=== PATIENT | male | born 1965 | race Caucasian/White ===

== ENCOUNTER 2017-04-11 18:58 | Inpatient (IN) | payer OTHER ==
[~2017-04-11] VITALS: Ht 190.5 cm; Wt 148.0 kg
[2017-04-11 19:01] VITALS: Ht 190.5 cm; Wt 148.0 kg
[2017-04-11] MEDS ORDERED: IPRATROPIUM (NEB) 0.5 MG/2.5 ML AMP INH STA (19:37)
[2017-04-11] MEDS ORDERED: METHYLPREDNISOLONE 125 MG INJ IV STA (19:37)
[2017-04-11] MEDS ORDERED: ALBUTEROL 0.5% (NEB) 2.5 MG/0.5 ML AMP INH STA (19:37)
[2017-04-11] MEDS ORDERED: ENALAPRILAT 1.25 MG INJ IV ONE (20:00)
[2017-04-11] MEDS ORDERED: ASPIRIN 81 MG TAB PO ONE (20:00)
[2017-04-11] MEDS ORDERED: FUROSEMIDE 40 MG INJ IV ONE (20:00)
[2017-04-11 20:11] LABS: ABNORMAL IP MESSAGE 1; BASOPHIL # 0.1 10^3/ul (0.0-0.1); BASOPHILS % 1.2 % (0.0-2.0); EOSINOPHILS # 0.2 10^3/ul (0.0-0.5); EOSINOPHILS % 4.4 % (0.0-7.0); HEMATOCRIT 31.3 % (42.0-52.0); LYMPHOCYTES # 1.8 10^3/ul (0.8-2.9); LYMPHOCYTES % 36.1 % (15.0-51.0); MEAN CORPUSCULAR HEMOGLOBIN 34.6 pg (29.0-33.0); MEAN CORPUSCULAR HGB CONC 35.1 g/dl (32.0-37.0); MEAN CORPUSCULAR VOLUME 98.4 fl (82.0-101.0); MEAN PLATELET VOLUME 12.1 fl (7.4-10.4); MONOCYTE # 0.5 10^3/ul (0.3-0.9); NEUTROPHILS % 48.1 % (39.0-77.0); PLATELET COUNT 75 10^3/UL (140-415); POSITIVE DIFF @See below; RED BLOOD COUNT 3.18 10^6/ul (4.70-6.10); RED CELL DISTRIBUTION WIDTH 16.9 % (11.5-14.5)
[2017-04-11] MEDS ORDERED: METF1000 PO (20:21)
[2017-04-11] MEDS ORDERED: NOVMIX SC (20:21)
[2017-04-11] MEDS ORDERED: METO-429 PO (20:23)
[2017-04-11] MEDS ORDERED: LORAZEPAM 2 MG INJ IV ONE ×2 (20:30→22:00)
[2017-04-11 20:36] LABS: ALBUMIN 2.9 g/dl (3.3-4.9); ALBUMIN/GLOBULIN RATIO 0.7; BILIRUBIN,INDIRECT 0.8 mg/dl (0-1.1); BILIRUBIN,TOTAL 0.8 mg/dl (0.2-1.3); CALCIUM 8.7 mg/dl (8.4-10.2); CREATININE 0.97 mg/dl (0.61-1.24); POTASSIUM 4.1 mmol/L (3.5-5.1)
--- NOTE | 2017-04-11 20:42 | RADRPT ---
PROCEDURE: Chest Radiograph. CLINICAL INDICATION: Chest and abdominal pain TECHNIQUE: Single frontal chest radiograph. COMPARISON: None available FINDINGS: The cardiomediastinal silhouette is within normal limits. There is mild bibasilar atelectasis. Ther e is a nonspecific interstitial prominence. No infiltrate or effusion is seen. The bones are inta ct. IMPRESSION: 1. Mild nonspecific interstitial prominence. 2. Bibasilar atelectasis. RPTAT: [facility] .Ever Gross MD, MD Date Time Electronically viewed and signed by .Ever Gross MD, MD on 04/11/2017 20:41 .B/
[2017-04-11 20:48] LABS: TROPONIN-I 0.019 ng/ml (0.00-0.12)
[2017-04-11] MEDS ORDERED: KETOROLAC 15 MG INJ IV STA (21:05)
[2017-04-11 21:21] LABS: AADO2 Arterial 109.9 mmHg (7.0-24.0); Arterial COHb 0.3 % (0.0-3.0); Arterial Fraction of Oxyhgb 97.1 % (93.0-99.0); Arterial HCO3 26.8 mmol/L (22.0-26.0); Arterial MetHb 0.3 % (0.0-1.5); Arterial Total Hemglobin 12.2 g/dl (12.0-18.0); Blood Gas IEPAP 15/5; Blood Gas PS 10; MODE MASK - BIPAP
[2017-04-11 22:38] VITALS: PULSE 92
--- NOTE | 2017-04-11 23:20 | ERA ---
ER Documentation Chief Complaint Date/Time DATE: 04/11/17 TIME: 23:14 Chief Complaint bib ra 909 fr home, ap x14 days +nausea. hx dm. HPI 51-year-old man brought in by EMS from home for shortness of breath, difficulty breathing, abdominal pain, bilateral lower extremity swelling 2 weeks. Patient does have a history of COPD, alcoholism, CHF, hypertension. Patient states he is noncompliant with his medications. Patient denies chest pain, no vomiting or diarrhea, no blood per rectum. ROS All systems reviewed and are negative except as per history of present illness. Medications Home Meds Reported Medications Metoprolol Tartrate* (Lopressor*) 50 Mg Tab, 50 MG PO BID, #60 TAB 04/11/17 Metformin Hcl* (Metformin Hcl*) 1,000 Mg Tablet, 1000 MG PO WITH BREAKFAST DINNE , #60 TAB 04/11/17 Insulin Aspart (Novolog Mix (70/30)) 100 Units/Ml Soln, 100 SC WITH BREAKFAST DINNE, EA 04/11/17 Allergies Allergies: Coded Allergies: No Known Allergy (Unverified , 04/11/17) PMhx/Soc Hypertension, alcoholism, diabetes mellitus, CAD, CHF History of Surgery: No Anesthesia Reaction: No Hx Neurological Disorder: No Hx Respiratory Disorders: No Hx Cardiac Disorders: Yes (HTN ) Hx Psychiatric Problems: Yes (ALCOHOL ABUSE) Hx Miscellaneous Medical Probl: No Hx Alcohol Use: No Hx Substance Use: No Hx Tobacco Use: No Smoking Status: Current every day smoker FmHx Family History: No diabetes Physical Exam Vitals Vital Signs Date Time Temp Pulse Resp B/P Pulse Ox O2 Delivery O2 Flow Rate FiO2 04/11/17 19:53 88 100 40 04/11/17 19:01 98.6 94 18 146/72 94 Physical Exam GENERAL: Well-developed, well-nourished, dyspneic, afebrile HEENT: Moist mucous membranes, pink conjunctiva, no cervical spine tenderness or step-off deformities, no goiter, no jaundice or icterus, extraocular movements intact without pain. No submandibular induration, and no pharyngeal erythema NEURO: Alert and oriented 3, cranial nerves II through XII intact bilaterally, pupils equal round reactive to light, no focal deficits or facial asymmetry, sensation intact distally Strength 5/5 in upper and lower extremities bilaterally CARDIAC: Regular rate and rhythm, no murmurs rubs or gallops LUNGS: Crackles and wheezes bilaterally, no stridor ABDOMEN: Soft nontender, no guarding, no rigidity, no rebound, no psoas sign no obturator sign. Normoactive bowel sounds SKIN: Warm and dry to touch, no abrasions, contusions, or hematomas, no lacerations, no ecchymosis, no target lesions, and without ulcers EXTREMITIES: 3+ pitting edema in the lower extremities bilaterally, calves are bilaterally symmetrical, no Homans sign, no popliteal cord sign. Distal pulses equal and bilateral PSYCH: Normal affect without agitation or irritability Result Diagram: 04/12/17 0735 04/12/17 0735 Results 24 hrs Laboratory Tests Test 04/11/17 19:08 04/11/17 20:00 Bedside Glucose 199mg/dL White Blood Count 5.010^3/ul Red Blood Count 3.1810^6/ul Hemoglobin 11.0g/dl Hematocrit 31.3% Mean Corpuscular Volume 98.4fl Mean Corpuscular Hemoglobin 34.6pg Mean Corpuscular Hemoglobin Concent 35.1g/dl Red Cell Distribution Width 16.9% Platelet Count 7510^3/UL Mean Platelet Volume 12.1fl Neutrophils % 48.1% Lymphocytes % 36.1% Monocytes % 10.0% Eosinophils % 4.4% Basophils % 1.2% Nucleated Red Blood Cells % 0.0/100WBC Neutrophils # (Manual) 2.410^3/ul Lymphocytes # 1.810^3/ul Monocytes # 0.510^3/ul Eosinophils # 0.210^3/ul Basophils # 0.110^3/ul Nucleated Red Blood Cells # 0.010^3/ul Sodium Level 144mmol/L Potassium Level 4.1mmol/L Chloride Level 111mmol/L Carbon Dioxide Level 27mmol/L Anion Gap 10 Blood Urea Nitrogen 14mg/dl Creatinine 0.97mg/dl Glucose Level 193mg/dl Calcium Level 8.7mg/dl Total Bilirubin 0.8mg/dl Direct Bilirubin 0.00mg/dl Indirect Bilirubin 0.8mg/dl Aspartate Amino Transf (AST/SGOT) 121IU/L Alanine Aminotransferase (ALT/SGPT) 49IU/L Alkaline Phosphatase 80IU/L Troponin I 0.019ng/ml B-Type Natriuretic Peptide 58PG/ML Total Protein 7.0g/dl Albumin 2.9g/dl Globulin 4.10g/dl Albumin/Globulin Ratio 0.70 Lipase 294U/L Ethyl Alcohol Level 354.0mg/dl Current Medications Medications (Trade) Dose Ordered Sig/Miroslava Route PRN Reason Start Time Stop Time Status Last Admin Dose Admin Albuterol (Proventil 0.5% (Neb)) 10 mg ONCE STAT INH 04/11/17 19:37 04/11/17 19:41 DC 04/11/17 19:37 Ipratropium Stanley (Atrovent 0.02% (Neb)) 1 mg ONCE STAT INH 04/11/17 19:37 04/11/17 19:41 DC 04/11/17 19:37 Methylprednisolone Sodium Succinate (Solu-Medrol) 125 mg ONCE STAT IV 04/11/17 19:37 04/11/17 19:41 DC 04/11/17 19:58 Aspirin (Aspirin) 324 mg ONCE ONCE PO 04/11/17 20:00 04/11/17 20:01 DC 04/11/17 19:58 Furosemide (Lasix) 80 mg ONCE ONCE IV 04/11/17 20:00 04/11/17 20:01 DC 04/11/17 19:58 Enalaprilat (Vasotec Iv) 1.25 mg ONCE ONCE IV 04/11/17 20:00 04/11/17 20:01 DC 04/11/17 19:58 Lorazepam (Ativan) 0.5 mg ONCE ONCE IV 04/11/17 20:30 04/11/17 20:31 DC 04/11/17 20:57 Procedures/MDM IV line was established patient was placed on digital marketing specialist rhythm strip revealed a sinus rhythm at about 90 bpm with upright P and T waves. Patient was afebrile. EKG performed, read by me revealed a normal sinus rhythm at 93 bpm, normal axis , right ventricular conduction delay with incarceration of 108 ms, no concerning ST elevations or depressions noted. One view chest x-ray performed, read by me there is cardiomegaly and bilateral pulmonary vascular congestion, no acute infiltrates, no pneumothorax. I ordered albuterol 10 mg via nebulizer, ipratropium 1 mg via nebulizer, methylprednisolone 125 mg IV, aspirin 324 mg p.o. for cardioprotective measures , furosemide 80 mg IV 1 for diuresis and enalapril 1.25 mg IV for hypertension. I also administered Toradol 50 mg IV 1 for complaints of body aches and lorazepam 0.5 mg IV 2. I also placed the patient on BiPAP therapy. I initially suspected decompensated heart failure and patient definitely improved and felt better with BiPAP therapy , which was required for about 2 hours. Critical Care: Time: 55 minutes, this was time separate from other billable procedures. Treatments/Evaluations: Close monitoring and treatment of unstable vital signs, cardiorespiratory, and neurologic status, while maintaining tight balance of fluid, respiratory, and cardiac interventions. CBC and electrolytes were normal, liver function tests normal, troponin negative. BNP was low, ethanol level elevated at 354. Patient will be admitted to telemetry setting for continued medical management cardiology consultation. Departure Diagnosis: Primary Impression: Acute respiratory failure Qualified Code: J96.01 - Acute respiratory failure with hypoxia and hypercapnia Additional Impressions: COPD (chronic obstructive pulmonary disease) Qualified Code: J44.1 - Chronic obstructive pulmonary disease with acute exacerbation Alcohol intoxication Qualified Code: F10.920 - Alcoholic intoxication without complication Peripheral edema Hypertensive emergency Condition: Serious ARTURO THOMPSON MD Apr 11, 2017 23:20
[2017-04-11 23:36] VITALS: BP 122/68; RESP 20
[2017-04-12] VITALS (12 sets, daily range): BP systolic 96–155; BP diastolic 52–88; PULSE 44–107; RESP 16–20
[2017-04-12] MEDS ORDERED: ALBUTEROL/IPRATROPIUM (NEB) 3 ML AMP HHN PRN (05:00)
[2017-04-12] MEDS ORDERED: NACL 0.9% 3 ML SYG IV SCH (05:00)
[2017-04-12] MEDS ORDERED: LORAZEPAM 2 MG INJ IV PRN (05:00)
[2017-04-12] MEDS ORDERED: ONDANSETRON 4 MG INJ IV PRN (05:00)
[2017-04-12] MEDS ORDERED: DEXTROSE 50% 50 ML SYRINGE IV PRN ×2 (05:30)
[2017-04-12] MEDS ORDERED: GLUCOSE GEL 15 GRAM TUBE BUCCAL PRN (05:30)
[2017-04-12] MEDS ORDERED: GLUCOSE GEL 15 GRAM TUBE PO PRN ×2 (05:30)
[2017-04-12] MEDS ORDERED: GLUCAGON 1 MG INJ IM PRN (05:30)
[2017-04-12] MEDS: DEXTROSE 5%-0.45% NACL 1,000 ML IV SCH ×2 (05:56→14:56)
[2017-04-12] MEDS ORDERED: PANTOPRAZOLE 40 MG INJ IV SCH (06:00)
[2017-04-12 07:58] LABS: ABNORMAL IP MESSAGE 1; HEMATOCRIT 34.4 % (42.0-52.0); HEMOGLOBIN 11.7 g/dl (14.0-18.0); MEAN CORPUSCULAR HEMOGLOBIN 34.1 pg (29.0-33.0); MEAN CORPUSCULAR VOLUME 100.3 fl (82.0-101.0); MEAN PLATELET VOLUME 12.4 fl (7.4-10.4); PLATELET COUNT 58 10^3/UL (140-415); POSITIVE DIFF @See below; RED BLOOD COUNT 3.43 10^6/ul (4.70-6.10); RED CELL DISTRIBUTION WIDTH 16.7 % (11.5-14.5); WHITE BLOOD COUNT 2.7 10^3/ul (4.8-10.8)
[2017-04-12] MEDS ORDERED: INSULIN GLARGINE [LANtus] 3 ML PEN SC SCH (08:00)
[2017-04-12 08:22] LABS: IRON 257 ug/dl (35-150)
[2017-04-12 08:23] LABS: CREATINE KINASE 617 IU/L (23-200)
[2017-04-12 08:26] LABS: ALBUMIN 2.7 g/dl (3.3-4.9); ALBUMIN/GLOBULIN RATIO 0.71; BILIRUBIN,INDIRECT 1.1 mg/dl (0-1.1); BILIRUBIN,TOTAL 1.1 mg/dl (0.2-1.3); CALCIUM 8.5 mg/dl (8.4-10.2); CREATININE 1.02 mg/dl (0.61-1.24); POTASSIUM 4.6 mmol/L (3.5-5.1); TOTAL PROTEIN 6.5 g/dl (6.1-8.1)
[2017-04-12 08:31] LABS: TOTAL IRON BINDING CAPACITY 265 ug/dl (241-421)
[2017-04-12] MEDS: HEPARIN 5,000 UNIT/0.5 ML VIAL SC SCH ×2 (08:33→21:16)
[2017-04-12 08:36] LABS: CK-MB 3.69 ng/ml (0.0-2.4); TROPONIN-I < 0.012 ng/ml (0.00-0.12)
[2017-04-12 09:06] LABS: ANISOCYTOSIS 1+ (0-0); BASOPHILS % (M) 2 % (0-2); PLATELET ESTIMATE DECREASED
[2017-04-12] MEDS: MULTIVITAMINS 10 ML, THIAMINE 100 MG, FOLIC ACID 1 MG in SOD CHLORIDE 0.9% 1,000 ML IVPB SCH (09:13)
[2017-04-12] MEDS: METOPROLOL 50 MG TAB PO SCH ×2 (09:13→21:12)
[2017-04-12 12:13] LABS: CREATINE KINASE 585 IU/L (23-200)
[2017-04-12 12:33] LABS: CK-MB 3.86 ng/ml (0.0-2.4); TROPONIN-I < 0.012 ng/ml (0.00-0.12)
[2017-04-12] MEDS ORDERED: MAGNESIUM SULFATE 4 GM/100 ML 100 ML IVPB SCH (13:00)
--- NOTE | 2017-04-12 15:14 | PN ---
Date/Time of Note Date/Time of Note DATE: 04/12/17 TIME: 15:14 Assessment/Plan VTE Prophylaxis VTE Prophylaxis Intervention: ambulation Lines/Catheters IV Catheter Type (from Nrs): Saline Lock Assessment/Plan Chief Complaint/Hosp Course 1.Abdominal pain with EtOH intoxication. -Continue banana bag, PRN Ativan. Obtain US to rule out Cirrhosis. -Abstinence advised 2.Hyperglycemia with DMII. A1C 8.2 -Accuchecks,ISS,Lantus.Add premeal aspart. Carb controlled diet -DM education 3.HTN -Continue antihypertensives 4.Tobacco use. -Cessation advised. 5. Possible noncompliance. -counselled patient 6.Pancytopenia/Thrombocytopenia 2/2,likely 2/2 alcoholism -Monitor closely-no need for transfusion now. -F/u Liver US 7. Chronic lymphedema. -Elevation of affected extremities. PLAN: Continue current management. Advance diet as tolerated. Monitor lytes closely. Patient was seen in collaboration with . Problems: Subjective 24 Hr Interval Summary Free Text/Dictation Patient sitting up in bed.No nausea/vomiting.Asking for food. Exam/Review of Systems Vital Signs Vitals Vital Signs Date Time Temp Pulse Resp B/P Pulse Ox O2 Delivery O2 Flow Rate FiO2 04/12/17 12:30 101 04/12/17 11:30 98.2 18 132/67 90 04/12/17 06:14 21 Intake and Output 04/11/17 04/11/17 04/12/17 15:00 23:00 07:00 Intake Total 200 ml Output Total 700 ml Balance -500 ml Exam General:Morbidly obese male, not in any acute distress . HEENT: Normocephalic, Atraumatic, No laceration or hematoma; Eyes: PEERL, Conjunctiva clear, Anicteric sclera Neck: Supple without any lymphadenopathy, nontender, no JVD, no carotid bruits, trachea midline, no thyromegaly Cardiac: S1, S2 auscultated, regular rhythm and rate, no mumurs or gallop Pulmonary: Normal respiratory effort. Chest clear to auscultation bilaterally, no adventitious breath sounds GI: Abdomen obese to inspection. Soft, non- distended, no masses, no rebound tenderness or guarding. Bowel sounds active on all four quadrants Genitourinary: Deferred Extremities: +Chronic lymphedema BLE. No cyanosis or clubbing. Pulses [2+] bilaterally. Full ROM on all four extremities. No focal weakness appreciated. Neurologic: Alert to person, place, time, and situation. Affect appropriate, intact sensation. Skin: Clean,dry, and intact. No ecchymosis, no rashes, or lesions Results Result Diagram: 04/12/17 0735 04/12/17 0735 Results 24 hrs Laboratory Tests Test 04/11/17 19:08 04/11/17 20:00 04/11/17 21:00 04/12/17 07:35 Bedside Glucose 199 White Blood Count 5.0 2.7 #L Red Blood Count 3.18 L 3.43 L Hemoglobin 11.0 L 11.7 L Hematocrit 31.3 L 34.4 L Mean Corpuscular Volume 98.4 100.3 Mean Corpuscular Hemoglobin 34.6 H 34.1 H Mean Corpuscular Hemoglobin Concent 35.1 34.0 Red Cell Distribution Width 16.9 H 16.7 H Platelet Count 75 L 58 #L Mean Platelet Volume 12.1 H 12.4 H Neutrophils % 48.1 Lymphocytes % 36.1 Monocytes % 10.0 Eosinophils % 4.4 Basophils % 1.2 Nucleated Red Blood Cells % 0.0 0.0 Neutrophils # (Manual) 2.4 2.2 Lymphocytes # 1.8 Monocytes # 0.5 Eosinophils # 0.2 Basophils # 0.1 Nucleated Red Blood Cells # 0.0 Sodium Level 144 143 Potassium Level 4.1 4.6 Chloride Level 111 H 108 Carbon Dioxide Level 27 25 Anion Gap 10 15 Blood Urea Nitrogen 14 19 Creatinine 0.97 1.02 Glucose Level 193 295 #H Calcium Level 8.7 8.5 Total Bilirubin 0.8 1.1 Direct Bilirubin 0.00 0.00 Indirect Bilirubin 0.8 1.1 Aspartate Amino Transf (AST/SGOT) 121 H 105 H Alanine Aminotransferase (ALT/SGPT) 49 53 Alkaline Phosphatase 80 71 Troponin I 0.019 < 0.012 B-Type Natriuretic Peptide 58 Total Protein 7.0 6.5 Albumin 2.9 L 2.7 L Globulin 4.10 H 3.80 H Albumin/Globulin Ratio 0.70 0.71 Lipase 294 Ethyl Alcohol Level 354.0 Blood Gas Specimen Source Blood arterial Arterial Blood Date Drawn 04/11/2017 9:00:41 PM Arterial Blood pH (Temp corrected) 7.419 Arterial Blood pCO2 (Temp correct) 42.3 Arterial Blood pO2 (Temp corrected) 126.7 H Arterial Blood HCO3 26.8 H Arterial Blood Base Excess 2.0 Arterial Blood Oxygen Saturation 97.7 Tino Test N/A Arterial Blood Gas Puncture Site LB Arterial Blood Carboxyhemoglobin 0.3 Arterial Blood Methemoglobin 0.3 Blood Gas A-a O2 Differential 109.9 H Oxyhemoglobin Percent 97.1 Total Hemoglobin 12.2 Blood Gas Temperature 37.0 Blood Gas Respiration Rate 18.0 Blood Gas Actual Respiration Rate 22 Blood Gas Modality MASK - BIPAP FiO2 40.0 Blood Gas Pressure Support 10 Blood Gas IPAP/EPAP Ratio 15 Blood Gas Notified Whom KM Blood Gas Notified Time 04/11/2017 9:20:57 PM Segmented Neutrophils % (Manual) 80 H Band Neutrophils % (Manual) 1 Lymphocytes % (Manual) 17 Basophils % (Manual) 2 Band Neutrophils # 0.0 Absolute Lymphocytes (Manual) 0.4 L Basophils # (Manual) 0.0 Platelet Estimate DECREASED Anisocytosis 1+ Hemoglobin A1c 8.2 H Magnesium Level 0.9 *L Iron Level 257 H Total Iron Binding Capacity 265 Percent Iron Saturation 97 H Ferritin 742.0 H Creatine Kinase 617 H Creatine Kinase Index 0.6 Creatinine Kinase MB (Mass) 3.69 H Test 04/12/17 08:21 04/12/17 11:28 Bedside Glucose 282 H Creatine Kinase 585 H Creatine Kinase Index 0.7 Creatinine Kinase MB (Mass) 3.86 H Troponin I < 0.012 Medications Medications Current Medications Dextrose/Sodium Chloride (D5-1/2ns) 1,000 ml @ 100 mls/hr Q10H IV Last administered on 04/12/17 05:56; Admin Dose 100 MLS/HR; Start 04/12/17 at 04:56 Lorazepam (Ativan) 2 mg Q1H PRN IV CONTROL WITHDRAWAL SYMPTOMS; Start 04/12/17 at 05:00 Ondansetron HCl (Zofran Inj) 4 mg Q6H PRN IV NAUSEA AND/OR VOMITING; Start 07/17 at 05:00 Morphine Sulfate (morphine) 2 mg Q4H PRN IV PAIN LEVEL 7-10; Start 04/12/17 at 05:00 Pantoprazole (Protonix Iv) 40 mg DAILY@06 IV Last administered on 04/12/17 06: 00; Admin Dose 40 MG; Start 04/12/17 at 06:00 Heparin Sodium (Porcine) (Heparin (5000 Units/0.5 ml)) 5,000 unit Q12 SC Last administered on 04/12/17 08:33; Admin Dose 5,000 UNIT; Start 04/12/17 at 09:00 Diagnostic Test (Pha) (Accu-Chek) 1 ea 02 XX ; Start 04/13/17 at 02:00 Insulin Glargine (Lantus) 22 unit DAILY@08 SC Last administered on 04/12/17 08 :32; Admin Dose 22 UNIT; Start 04/12/17 at 08:00 Metoprolol Tartrate 50 mg 50 mg BID PO Last administered on 04/12/17 09:13; Admin Dose 50 MG; Start 04/12/17 at 09:00 Multivitamins/ Thiamine HCl/ Folic Acid/Sodium Chloride (Mvi Adult/ Vitamin B1/ Folic Acid/NS) 1,011.2 ml @ 125 mls/ hr DAILY@09 IVPB Last administered on 09:13; Admin Dose 125 MLS/HR; Start 04/12/17 at 09:00 Miscellaneous Information 1 ea NOTE XX ; Start 04/12/17 at 05:30 Glucose (Glutose) 15 gm Q15M PRN PO DECREASED GLUCOSE; Start 04/12/17 at 05:30 Glucose (Glutose) 22.5 gm Q15M PRN PO DECREASED GLUCOSE; Start 04/12/17 at 05: 30 Dextrose (D50w Syringe) 25 ml Q15M PRN IV DECREASED GLUCOSE; Start 04/12/17 at 05:30 Dextrose (D50w Syringe) 50 ml Q15M PRN IV DECREASED GLUCOSE; Start 04/12/17 at 05:30 Glucagon (Glucagen) 1 mg Q15M PRN IM DECREASED GLUCOSE; Start 04/12/17 at 05:30 Glucose 15 gm 15 gm Q15M PRN BUCCAL DECREASED GLUCOSE; Start 04/12/17 at 05:30 Magnesium Sulfate (Magnesium Sulfate 4 Gm/100 ml) 100 ml @ 25 mls/hr ONCE IVPB Last administered on 04/12/17 13:00; Admin Dose 25 MLS/HR; Start 04/12/17 at 13:00; Stop 04/12/17 at 16:59 NICK SANTIAGO NP Apr 12, 2017 15:14
[2017-04-12] MEDS: morphine 2 MG INJ IV PRN ×2 (15:34→19:41)
[2017-04-12] MEDS: INSULIN ASPART [NOVOLOG] 3 ML PEN SC SCH ×3 (17:55→21:00)
[2017-04-12] MEDS ORDERED: INSULIN GLARGINE [LANtus] 3 ML PEN SC ONE (21:00)
[2017-04-12] MEDS ORDERED: INSULIN ASPART [NOVOLOG] 3 ML PEN SC SCH (21:01)
[2017-04-12] MEDS: CHLORDIAZEPOXIDE 25 MG CAP PO SCH (21:13)
--- NOTE | 2017-04-12 22:29 | HP ---
Date/Time of Note Date/Time of Note DATE: 04/12/17 TIME: 22:29 Assessment/Plan VTE Prophylaxis VTE Prophylaxis Intervention: heparin Lines/Catheters IV Catheter Type (from Nrsg): Saline Lock Assessment/Plan Assessment/Plan ASSESSMENT 51 yo male with hx of HTN, insulin dep DM and alcohol abuse who presented to ER with abd pain and intoxication after 2 weeks of binge PLAN Banana bag, IVF Librium As needed Ativan Insulin Adjust anti-hypertensies as needed. HPI/ROS Admit Date/Time Admit Date/Time Apr 11, 2017 at 20:53 Hx of Present Illness This is a 51 yo male with hx of HTN, insulin dep DM and alcohol abuse who presented to ER c/o abd pain. He has been drinking "all kinds of alcohol" for about 2 weeks. Abd pain is diffuse, but mainly in val[place]-umblical and epigastric area. pt is lethargic/sleepy and as such information obtained from him is limited. Lab showed elevated blood alcohol level . . PMH/Family/Social Past Medical History Medical History: diabetes, hypertension Social History Smoking Status: Current every day smoker Exam/Review of Systems Vital Signs Vitals Vital Signs Date Time Temp Pulse Resp B/P Pulse Ox O2 Delivery O2 Flow Rate FiO2 04/12/17 20:09 107 04/12/17 19:48 98.4 18 144/82 95 04/12/17 06:14 21 Intake and Output 04/11/17 04/11/17 04/12/17 15:00 23:00 07:00 Intake Total 200 ml Output Total 700 ml Balance -500 ml Exam Constitutional: other (obese. lethargic, arousable) Head: atraumatic, normocephalic Eyes: PERRL Respiratory: clear to auscultation Cardiovascular: other (tachycardic with regular rhythm) Gastrointestinal: soft Extremities: normal pulses Labs Result Diagram: 04/12/17 0735 04/12/17 0735 Medications Medications Current Medications Dextrose/Sodium Chloride (D5-1/2ns) 1,000 ml @ 100 mls/hr Q10H IV Last administered on 04/12/17t 05:56; Admin Dose 100 MLS/HR; Start 04/12/17 at 04:56 Lorazepam (Ativan) 2 mg Q1H PRN IV CONTROL WITHDRAWAL SYMPTOMS; Start 04/12/17 at 05:00 Ondansetron HCl (Zofran Inj) 4 mg Q6H PRN IV NAUSEA AND/OR VOMITING; Start 07/17 at 05:00 Morphine Sulfate (morphine) 2 mg Q4H PRN IV PAIN LEVEL 7-10 Last administered on 04/12/17 19:41; Admin Dose 2 MG; Start 04/12/17 at 05:00 Heparin Sodium (Porcine) (Heparin (5000 Units/0.5 ml)) 5,000 unit Q12 SC Last administered on 04/12/17 21:16; Admin Dose 5,000 UNIT; Start 04/12/17 at 09:00 Diagnostic Test (Pha) (Accu-Chek) 1 ea 02 XX ; Start 04/13/17 at 02:00 Insulin Glargine (Lantus) 22 unit DAILY@08 SC Last administered on 04/12/17 08 :32; Admin Dose 22 UNIT; Start 04/12/17 at 08:00 Metoprolol Tartrate 50 mg 50 mg BID PO Last administered on 04/12/17 21:12; Admin Dose 50 MG; Start 04/12/17 at 09:00 Multivitamins/ Thiamine HCl/ Folic Acid/Sodium Chloride (Mvi Adult/ Vitamin B1/ Folic Acid/NS) 1,011.2 ml @ 125 mls/ hr DAILY@09 IVPB Last administered on 09:13; Admin Dose 125 MLS/HR; Start 04/12/17 at 09:00 Miscellaneous Information 1 ea NOTE XX ; Start 04/12/17 at 05:30 Glucose (Glutose) 15 gm Q15M PRN PO DECREASED GLUCOSE; Start 04/12/17 at 05:30 Glucose (Glutose) 22.5 gm Q15M PRN PO DECREASED GLUCOSE; Start 04/12/17 at 05: 30 Dextrose (D50w Syringe) 25 ml Q15M PRN IV DECREASED GLUCOSE; Start 04/12/17 at 05:30 Dextrose (D50w Syringe) 50 ml Q15M PRN IV DECREASED GLUCOSE; Start 04/12/17 at 05:30 Glucagon (Glucagen) 1 mg Q15M PRN IM DECREASED GLUCOSE; Start 04/12/17 at 05:30 Glucose (Glutose) 15 gm Q15M PRN BUCCAL DECREASED GLUCOSE; Start 04/12/17 at 05 :30 Diagnostic Test (Pha) (Accu-Chek) 1 ea 02 XX ; Start 04/13/17 at 02:00 Famotidine (Pepcid Iv) 20 mg BID IV ; Start 04/13/17 at 09:00 Chlordiazepoxide (Librium) 100 mg Q8H PO Last administered on 04/12/17t 21:13; Admin Dose 100 MG; Start 04/12/17 at 21:00 SHRUTHI PAPPAS MD Apr 12, 2017 22:29
[2017-04-13] VITALS (13 sets, daily range): BP systolic 127–156; BP diastolic 72–89; PULSE 71–103; RESP 18–22
[2017-04-13] MEDS: DEXTROSE 5%-0.45% NACL 1,000 ML IV SCH (00:56)
[2017-04-13] MEDS ORDERED: ACCU-CHEK XX SCH (02:00)
[2017-04-13] MEDS: ACCU-CHEK XX SCH (02:00)
[2017-04-13] MEDS: CHLORDIAZEPOXIDE 25 MG CAP PO SCH ×3 (06:06→20:35)
[2017-04-13 07:34] LABS: ABNORMAL IP MESSAGE 1; BASOPHILS % 0.2 % (0.0-2.0); EOSINOPHILS % 0.7 % (0.0-7.0); HEMATOCRIT 28.5 % (42.0-52.0); HEMOGLOBIN 10.3 g/dl (14.0-18.0); LYMPHOCYTES # 0.8 10^3/ul (0.8-2.9); LYMPHOCYTES % 18.8 % (15.0-51.0); MEAN CORPUSCULAR HEMOGLOBIN 35.6 pg (29.0-33.0); MEAN CORPUSCULAR HGB CONC 36.1 g/dl (32.0-37.0); MEAN CORPUSCULAR VOLUME 98.6 fl (82.0-101.0); MEAN PLATELET VOLUME 12.4 fl (7.4-10.4); MONOCYTE # 0.5 10^3/ul (0.3-0.9); MONOCYTES % 11.1 % (0.0-11.0); NEUTROPHILS % 68.7 % (39.0-77.0); PLATELET COUNT 49 10^3/UL (140-415); POSITIVE DIFF @See below; RED BLOOD COUNT 2.89 10^6/ul (4.70-6.10); RED CELL DISTRIBUTION WIDTH 16.4 % (11.5-14.5); WHITE BLOOD COUNT 4.2 10^3/ul (4.8-10.8)
[2017-04-13 07:57] LABS: CALCIUM 8.1 mg/dl (8.4-10.2); CREATININE 0.92 mg/dl (0.61-1.24); MAGNESIUM 1.3 mg/dl (1.7-2.5); PHOSPHORUS 2.8 mg/dl (2.5-4.9); POTASSIUM 3.9 mmol/L (3.5-5.1)
[2017-04-13] MEDS ORDERED: INSULIN GLARGINE [LANtus] 3 ML PEN SC SCH (08:00)
--- NOTE | 2017-04-13 08:19 | RADRPT ---
PROCEDURE: US Abdomen and Retroperitoneum. CLINICAL INDICATION: Cirrhosis. TECHNIQUE: Multiple real-time longitudinal and transverse images were acquired of the patient's ab domen and retroperitoneum utilizing a curved array transducer. COMPARISON: 02/05/2017. FINDINGS: Liver demonstrates coarsening of the liver echotexture with surface nodularity. No focal liver mass . There is reversal of flow of the portal vein. Gallbladder demonstrates gallbladder wall thickening without stones. There is no gallbladder wall t hickening or pericholecystic fluid. No intra- or extrahepatic biliary dilation. Pancreas is partially visualized and grossly unremarkable. Spleen is enlarged. There are perisplenic varices No hydronephrosis or nephrolithiasis. No ascites. Proximal aorta and IVC are unremarkable. MEASUREMENTS: Liver: 21.1 cm Common Duct: 0.7 cm Right Kidney: 15.1 cm Left Kidney: 14.2 cm Spleen: 13.9 cm IMPRESSION: Hepatomegaly with morphologic changes in the liver, consistent with cirrhosis. Splenomegaly with perisplenic varices and reversal of flow in the portal vein, consistent with salma l hypertension. Gallbladder wall thickening which is nonspecific in the setting of liver cirrhosis. RPTAT: EE .Corey Low MD, MD Date Time Electronically viewed and signed by .Corey Low MD, on 04/13/2017 08:24 .C/
[2017-04-13] MEDS: INSULIN ASPART [NOVOLOG] 3 ML PEN SC SCH ×7 (08:47→20:41)
[2017-04-13] MEDS: METOPROLOL 50 MG TAB PO SCH ×2 (08:49→20:36)
[2017-04-13] MEDS: HEPARIN 5,000 UNIT/0.5 ML VIAL SC SCH ×2 (08:58→20:39)
[2017-04-13] MEDS ORDERED: FAMOTIDINE 20 MG INJ IV SCH (09:00)
[2017-04-13] MEDS ORDERED: FUROSEMIDE 40 MG TAB PO SCH (10:30)
[2017-04-13] MEDS ORDERED: FUROSEMIDE 20 MG INJ IV ONE (10:30)
--- NOTE | 2017-04-13 10:30 | PN ---
Date/Time of Note Date/Time of Note DATE: 04/13/17 TIME: 10:17 Assessment/Plan VTE Prophylaxis VTE Prophylaxis Intervention: SCD's Lines/Catheters IV Catheter Type (from Nrsg): Peripheral IV Assessment/Plan Chief Complaint/Hosp Course 1.Abdominal pain with EtOH intoxication/ DTs.Improving. Abdominal pain resolved. -Continue banana bag, PRN Ativan. Titrate Librium down. -Abstinence advised 2.Hyperglycemia with DMII. A1C 8.2. Needs more optimization -Escalate Lantus to 30,premeal 10 TID. Continue Accuchecks,ISS and Carb controlled diet -DM education 3.Alcoholic Liver cirrhosis/portal HTN. No ascites. -Start Aldactone/Lasix combined therapy. 4.HTN -Continue antihypertensives and titrate as needed 5.Pancytopenia/Thrombocytopenia 2/2 #3 -Monitor closely-no need for transfusion now. 6. Chronic lymphedema. -Elevation of affected extremities. Hoping addition of Lasix can also aid in improvement of edema. 7.Hypomagnesemia. Replete and monitor. 8.Tobacco use. -Cessation advised. 9. Possible noncompliance. -counselled patient 10.Alcohol abuse. -Abstinence advised. 11.Morbid obesity Weight reduction advised. PLAN: Continue current management. Advance diet as tolerated. Monitor lytes closely. Patient was seen in collaboration with . Problems: Subjective 24 Hr Interval Summary Free Text/Dictation Patient had DTS overnight and Librium has been started. currently sleeping comfortably. no tremors noted. Exam/Review of Systems Vital Signs Vitals Vital Signs Date Time Temp Pulse Resp B/P Pulse Ox O2 Delivery O2 Flow Rate FiO2 04/13/17 08:08 91 04/13/17 07:30 Nasal Cannula 2.0 04/13/17 07:28 98.3 20 156/86 93 04/12/17 06:14 21 Intake and Output 04/12/17 04/12/17 04/13/17 15:00 23:00 07:00 Intake Total 900 ml 1020 ml Balance 900 ml 1020 ml Exam General:Morbidly obese male, not in any acute distress . HEENT: Normocephalic, Atraumatic, No laceration or hematoma; Eyes: PEERL, Conjunctiva clear, Anicteric sclera Neck: Supple without any lymphadenopathy, nontender, no JVD, no carotid bruits, trachea midline, no thyromegaly Cardiac: S1, S2 auscultated, regular rhythm and rate, no mumurs or gallop Pulmonary: Normal respiratory effort. Chest clear to auscultation bilaterally, no adventitious breath sounds GI: Abdomen obese to inspection. Soft, non- distended, no masses, no rebound tenderness or guarding. Bowel sounds active on all four quadrants Genitourinary: Deferred Extremities: +Chronic lymphedema BLE. No cyanosis or clubbing. Pulses [2+] bilaterally. Full ROM on all four extremities. No focal weakness appreciated. Neurologic: Alert to person, place, time, and situation. Affect appropriate, intact sensation. Skin: Clean,dry, and intact. No ecchymosis, no rashes, or lesions Results Result Diagram: 04/13/1751 04/13/17 0651 Results 24 hrs Laboratory Tests Test 04/12/17 11:28 04/12/17 17:39 04/12/17 20:42 04/13/17 01:24 Creatine Kinase 585 H Creatine Kinase Index 0.7 Creatinine Kinase MB (Mass) 3.86 H Troponin I < 0.012 Bedside Glucose 338 H 392 H 254 H Test 04/13/17 06:51 04/13/17 08:40 White Blood Count 4.2 #L Red Blood Count 2.89 L Hemoglobin 10.3 L Hematocrit 28.5 L Mean Corpuscular Volume 98.6 Mean Corpuscular Hemoglobin 35.6 H Mean Corpuscular Hemoglobin Concent 36.1 Red Cell Distribution Width 16.4 H Platelet Count 49 L Mean Platelet Volume 12.4 H Neutrophils % 68.7 Lymphocytes % 18.8 Monocytes % 11.1 H Eosinophils % 0.7 Basophils % 0.2 Nucleated Red Blood Cells % 0.0 Neutrophils # (Manual) 2.9 Lymphocytes # 0.8 Monocytes # 0.5 Eosinophils # 0.0 Basophils # 0.0 Nucleated Red Blood Cells # 0.0 Sodium Level 135 Potassium Level 3.9 Chloride Level 103 Carbon Dioxide Level 30 Anion Gap 6 #L Blood Urea Nitrogen 27 H Creatinine 0.92 Glucose Level 246 H Calcium Level 8.1 L Phosphorus Level 2.8 Magnesium Level 1.3 L Bedside Glucose 221 H Medications Medications Current Medications Lorazepam (Ativan) 2 mg Q1H PRN IV CONTROL WITHDRAWAL SYMPTOMS Last administered on 04/12/17 22:36; Admin Dose 2 MG; Start 04/12/17 at 05:00 Ondansetron HCl (Zofran Inj) 4 mg Q6H PRN IV NAUSEA AND/OR VOMITING; Start 07/17 at 05:00 Morphine Sulfate (morphine) 2 mg Q4H PRN IV PAIN LEVEL 7-10 Last administered on 04/12/17 19:41; Admin Dose 2 MG; Start 04/12/17 at 05:00 Heparin Sodium (Porcine) (Heparin (5000 Units/0.5 ml)) 5,000 unit Q12 SC Last administered on 04/13/17 08:58; Admin Dose 5,000 UNIT; Start 04/12/17 at 09:00 Metoprolol Tartrate 50 mg 50 mg BID PO Last administered on 04/13/17 08:49; Admin Dose 50 MG; Start 04/12/17 at 09:00 Multivitamins/ Thiamine HCl/ Folic Acid/Sodium Chloride (Mvi Adult/ Vitamin B1/ Folic Acid/NS) 1,011.2 ml @ 60 mls/hr DAILY@ IVPB Last administered on 09:13; Admin Dose 125 MLS/HR; Start 04/12/17 at 09:00 Miscellaneous Information 1 ea NOTE XX ; Start 04/12/17 at 05:30 Glucose (Glutose) 15 gm Q15M PRN PO DECREASED GLUCOSE; Start 04/12/17 at 05:30 Glucose (Glutose) 22.5 gm Q15M PRN PO DECREASED GLUCOSE; Start 04/12/17 at 05: 30 Dextrose (D50w Syringe) 25 ml Q15M PRN IV DECREASED GLUCOSE; Start 04/12/17 at 05:30 Dextrose (D50w Syringe) 50 ml Q15M PRN IV DECREASED GLUCOSE; Start 04/12/17 at 05:30 Glucagon (Glucagen) 1 mg Q15M PRN IM DECREASED GLUCOSE; Start 04/12/17 at 05:30 Glucose (Glutose) 15 gm Q15M PRN BUCCAL DECREASED GLUCOSE; Start 04/12/17 at 05 :30 Diagnostic Test (Pha) (Accu-Chek) 1 ea 02 XX ; Start 04/13/17 at 02:00 Famotidine (Pepcid Iv) 20 mg BID IV Last administered on 04/13/17 08:58; Admin Dose 20 MG; Start 04/13/17 at 09:00 Chlordiazepoxide (Librium) 100 mg Q8H PO Last administered on 04/13/17 06:06; Admin Dose 100 MG; Start 04/12/17 at 21:00 Insulin Glargine (Lantus) 27 unit DAILY@08 SC Last administered on 04/13/17 08 :48; Admin Dose 27 UNIT; Start 04/13/17 at 08:00 NICK SANTIAGO NP Apr 13, 2017 10:28
[2017-04-13] MEDS ORDERED: MAGNESIUM SULFATE 4 GM/100 ML 100 ML IVPB ONE (11:30)
[2017-04-13] MEDS: MULTIVITAMINS 10 ML, THIAMINE 100 MG, FOLIC ACID 1 MG in SOD CHLORIDE 0.9% 1,000 ML IVPB SCH (12:28)
[2017-04-13] MEDS ORDERED: SPIRONOLACTONE 50 MG TAB PO SCH (18:00)
[2017-04-13] MEDS: morphine 2 MG INJ IV PRN (18:19)
[2017-04-13] MEDS: FAMOTIDINE 20 MG TAB PO SCH (20:35)
[2017-04-13] MEDS ORDERED: LORAZEPAM 2 MG INJ IV ONE (22:00)
[2017-04-14] VITALS (12 sets, daily range): BP systolic 134–159; BP diastolic 68–80; PULSE 69–75; RESP 18–20
[2017-04-14] MEDS: ACCU-CHEK XX SCH (02:23)
[2017-04-14] MEDS: CHLORDIAZEPOXIDE 25 MG CAP PO SCH ×2 (05:30→20:55)
[2017-04-14 07:05] LABS: ABNORMAL IP MESSAGE 1; BASOPHILS % 0.6 % (0.0-2.0); EOSINOPHILS # 0.1 10^3/ul (0.0-0.5); EOSINOPHILS % 3.6 % (0.0-7.0); HEMATOCRIT 29.8 % (42.0-52.0); HEMOGLOBIN 10.5 g/dl (14.0-18.0); LYMPHOCYTES # 0.7 10^3/ul (0.8-2.9); LYMPHOCYTES % 23.3 % (15.0-51.0); MEAN CORPUSCULAR HEMOGLOBIN 35.6 pg (29.0-33.0); MEAN CORPUSCULAR HGB CONC 35.2 g/dl (32.0-37.0); MEAN PLATELET VOLUME 12.6 fl (7.4-10.4); MONOCYTE # 0.4 10^3/ul (0.3-0.9); MONOCYTES % 13.3 % (0.0-11.0); NEUTROPHIL # 1.8 10^3/ul (1.6-7.5); NEUTROPHILS % 58.2 % (39.0-77.0); NUCLEATED RED BLOOD CELLS% 0.6 /100WBC (0.0-0.0); PLATELET COUNT 47 10^3/UL (140-415); POSITIVE DIFF @See below; RED BLOOD COUNT 2.95 10^6/ul (4.70-6.10); WHITE BLOOD COUNT 3.1 10^3/ul (4.8-10.8)
[2017-04-14 07:28] LABS: CALCIUM 8.2 mg/dl (8.4-10.2); CREATININE 0.98 mg/dl (0.61-1.24); POTASSIUM 3.6 mmol/L (3.5-5.1)
[2017-04-14] MEDS: INSULIN ASPART [NOVOLOG] 3 ML PEN SC SCH ×7 (08:13→21:00)
[2017-04-14] MEDS: INSULIN GLARGINE [LANtus] 3 ML PEN SC SCH (08:15)
[2017-04-14] MEDS: MULTIVITAMINS 10 ML, THIAMINE 100 MG, FOLIC ACID 1 MG in SOD CHLORIDE 0.9% 1,000 ML IVPB SCH ×2 (08:16→17:14)
[2017-04-14] MEDS: HEPARIN 5,000 UNIT/0.5 ML VIAL SC SCH ×2 (08:16→21:04)
[2017-04-14] MEDS: METOPROLOL 50 MG TAB PO SCH ×2 (08:17→20:57)
[2017-04-14] MEDS: morphine 2 MG INJ IV PRN (08:18)
[2017-04-14] MEDS ORDERED: LACTULOSE 30ML CUP PO PRN (12:30)
[2017-04-14] MEDS ORDERED: LACTULOSE 30ML CUP PO ONE (12:30)
--- NOTE | 2017-04-14 12:37 | PN ---
Date/Time of Note Date/Time of Note DATE: 04/14/17 TIME: 12:24 Assessment/Plan VTE Prophylaxis VTE Prophylaxis Intervention: ambulation Lines/Catheters IV Catheter Type (from Nrs): Peripheral IV Assessment/Plan Chief Complaint/Hosp Course 1.Abdominal pain with EtOH intoxication/ DTs. Resolving -Continue banana bag, PRN Ativan. Titrate Librium down. -Abstinence advised 2. Mild hyperammonemia 2/2 cirrhosis without encephalopathy. -We will start patient on lactulose maintenance therapy secondary to liver cirrhosis. 3.Hyperglycemia with DMII. A1C 8.2. Glycemic control achieved. -Continue with Lantus to 30,premeal 10 TID. Continue Accuchecks,ISS and Carb controlled diet -DM education 4.Alcoholic Liver cirrhosis/portal HTN. No ascites. -No need for diuretics at this time. 5.HTN. Stable -Continue antihypertensives and titrate as needed 6.Pancytopenia/Thrombocytopenia 2/2 #3 -Monitor closely-no need for transfusion now. 7. Chronic lymphedema.Stable. -Elevation of affected extremities. 8.Hypomagnesemia. Status post repletion. Repeat level in a.m. 9.Tobacco use. -Cessation advised. 10. Possible noncompliance. -counselled patient 11.Alcohol abuse. -Abstinence advised. 12.Morbid obesity Weight reduction advised. PLAN: Taper down Librium prior to discharge. Start lactulose. Follow-up ammonia and magnesium level in a.m. If patient remains stable, likely discharge planning in a.m. Patient was seen in collaboration with . Problems: Subjective 24 Hr Interval Summary Free Text/Dictation Patient with no further DTs.Remains alert and oriented Exam/Review of Systems Vital Signs Vitals Vital Signs Date Time Temp Pulse Resp B/P Pulse Ox O2 Delivery O2 Flow Rate FiO2 04/14/17 12:16 70 04/14/17 11:09 98.6 19 141/80 93 04/13/17 07:30 Nasal Cannula 2.0 04/12/17 06:14 21 Intake and Output 04/13/17 04/13/17 04/14/17 15:00 23:00 07:00 Intake Total 300 ml Balance 300 ml Exam General:Morbidly obese male, not in any acute distress . HEENT: Normocephalic, Atraumatic, No laceration or hematoma; Eyes: PEERL, Conjunctiva clear, Anicteric sclera Neck: Supple without any lymphadenopathy, nontender, no JVD, no carotid bruits, trachea midline, no thyromegaly Cardiac: S1, S2 auscultated, regular rhythm and rate, no mumurs or gallop Pulmonary: Normal respiratory effort. Chest clear to auscultation bilaterally, no adventitious breath sounds GI: Abdomen obese to inspection. Soft, non- distended, no masses, no rebound tenderness or guarding. Bowel sounds active on all four quadrants Genitourinary: Deferred Extremities: +Chronic lymphedema BLE. No cyanosis or clubbing. Pulses [2+] bilaterally. Full ROM on all four extremities. No focal weakness appreciated. Neurologic: Alert to person, place, time, and situation. Affect appropriate, intact sensation. Skin: Clean,dry, and intact. No ecchymosis, no rashes, or lesions Results Result Diagram: 04/14/17 0607 04/14/17 0607 Results 24 hrs Laboratory Tests Test 04/13/17 12:26 04/13/17 18:07 04/13/17 20:38 04/14/17 06:07 Bedside Glucose 180 104 181 White Blood Count 3.1 #L Red Blood Count 2.95 L Hemoglobin 10.5 L Hematocrit 29.8 L Mean Corpuscular Volume 101.0 Mean Corpuscular Hemoglobin 35.6 H Mean Corpuscular Hemoglobin Concent 35.2 Red Cell Distribution Width 17.0 H Platelet Count 47 L Mean Platelet Volume 12.6 H Neutrophils % 58.2 Lymphocytes % 23.3 Monocytes % 13.3 H Eosinophils % 3.6 Basophils % 0.6 Nucleated Red Blood Cells % 0.6 H Neutrophils # 1.8 Lymphocytes # 0.7 L Monocytes # 0.4 Eosinophils # 0.1 Basophils # 0.0 Nucleated Red Blood Cells # 0.0 Sodium Level 136 Potassium Level 3.6 Chloride Level 104 Carbon Dioxide Level 31 Anion Gap 5 L Blood Urea Nitrogen 21 H Creatinine 0.98 Glucose Level 174 Calcium Level 8.2 L Test 04/14/17 07:59 04/14/17 11:37 Bedside Glucose 181 133 Medications Medications Current Medications Lorazepam (Ativan) 2 mg Q1H PRN IV CONTROL WITHDRAWAL SYMPTOMS Last administered on 04/12/17t 22:36; Admin Dose 2 MG; Start 04/12/17 at 05:00 Ondansetron HCl (Zofran Inj) 4 mg Q6H PRN IV NAUSEA AND/OR VOMITING; Start 07/17 at 05:00 Morphine Sulfate (morphine) 2 mg Q4H PRN IV PAIN LEVEL 7-10 Last administered on 04/14/17 08:18; Admin Dose 2 MG; Start 04/12/17 at 05:00 Heparin Sodium (Porcine) (Heparin (5000 Units/0.5 ml)) 5,000 unit Q12 SC Last administered on 04/14/17 08:16; Admin Dose 5,000 UNIT; Start 04/12/17 at 09:00 Metoprolol Tartrate 50 mg 50 mg BID PO Last administered on 04/14/17 08:17; Admin Dose 50 MG; Start 04/12/17 at 09:00 Multivitamins/ Thiamine HCl/ Folic Acid/Sodium Chloride (Mvi Adult/ Vitamin B1/ Folic Acid/NS) 1,011.2 ml @ 60 mls/hr DAILY@09 IVPB Last administered on 12:28; Admin Dose 60 MLS/HR; Start 04/12/17 at 09:00 Miscellaneous Information 1 ea NOTE XX ; Start 04/12/17 at 05:30 Glucose (Glutose) 15 gm Q15M PRN PO DECREASED GLUCOSE; Start 04/12/17 at 05:30 Glucose (Glutose) 22.5 gm Q15M PRN PO DECREASED GLUCOSE; Start 04/12/17 at 05: 30 Dextrose (D50w Syringe) 25 ml Q15M PRN IV DECREASED GLUCOSE; Start 04/12/17 at 05:30 Dextrose (D50w Syringe) 50 ml Q15M PRN IV DECREASED GLUCOSE; Start 04/12/17 at 05:30 Glucagon (Glucagen) 1 mg Q15M PRN IM DECREASED GLUCOSE; Start 04/12/17 at 05:30 Glucose (Glutose) 15 gm Q15M PRN BUCCAL DECREASED GLUCOSE; Start 04/12/17 at 05 :30 Diagnostic Test (Pha) (Accu-Chek) 1 ea 02 XX Last administered on 04/14/17 02: 23; Admin Dose 1 EA; Start 04/13/17 at 02:00 Insulin Glargine (Lantus) 30 unit DAILY@08 SC Last administered on 04/14/17 08 :15; Admin Dose 30 UNIT; Start 04/14/17 at 08:00 Famotidine (Pepcid) 20 mg HS PO Last administered on 04/13/17 20:35; Admin Dose 20 MG; Start 04/13/17 at 21:00 Chlordiazepoxide (Librium) 75 mg Q8H PO Last administered on 04/14/17 05:30; Admin Dose 75 MG; Start 04/13/17 at 13:00 NICK SANTIAGO NP Apr 14, 2017 12:37
[2017-04-14] MEDS: FAMOTIDINE 20 MG TAB PO SCH (20:56)
[2017-04-15] VITALS (12 sets, daily range): BP systolic 128–152; BP diastolic 61–88; PULSE 69–85; RESP 16–19
[2017-04-15] MEDS: ACCU-CHEK XX SCH (02:26)
[2017-04-15] MEDS: INSULIN ASPART [NOVOLOG] 3 ML PEN SC SCH ×7 (08:23→21:02)
[2017-04-15] MEDS: MULTIVITAMINS 10 ML, THIAMINE 100 MG, FOLIC ACID 1 MG in SOD CHLORIDE 0.9% 1,000 ML IVPB SCH (08:25)
[2017-04-15] MEDS: INSULIN GLARGINE [LANtus] 3 ML PEN SC SCH (08:25)
[2017-04-15] MEDS: HEPARIN 5,000 UNIT/0.5 ML VIAL SC SCH ×2 (08:28→20:45)
[2017-04-15] MEDS: METOPROLOL 50 MG TAB PO SCH ×2 (08:29→20:43)
[2017-04-15] MEDS: CHLORDIAZEPOXIDE 25 MG CAP PO SCH (08:29)
--- NOTE | 2017-04-15 09:39 | PN ---
Date/Time of Note Date/Time of Note DATE: 04/15/17 TIME: 09:35 Assessment/Plan VTE Prophylaxis VTE Prophylaxis Intervention: ambulation Lines/Catheters IV Catheter Type (from Nrs): Peripheral IV Assessment/Plan Chief Complaint/Hosp Course 1.Abdominal pain with EtOH intoxication/ DTs. Improved -Continue banana bag, PRN Ativan. Titrate off Librium as patent is now slightly lethargic -Abstinence advised 2. Mild encephalopathy, likely hepatic with hyperammonemia 2/2 cirrhosis.Ammonia trended up today -Titrate up lactulose. Add rifaximin. 3.Hyperglycemia with DMII. A1C 8.2. -Add Tradjenta. Continue with Lantus to 30,premeal 10 TID. Continue Accuchecks, ISS and Carb controlled diet -DM education 4.Alcoholic Liver cirrhosis/portal HTN. No ascites. -No need for diuretics at this time. 5.HTN. Stable -Continue antihypertensives and titrate as needed 6.Pancytopenia/Thrombocytopenia 2/2 #3 -Monitor closely-no need for transfusion now. 7. Chronic lymphedema.Stable. -Elevation of affected extremities. 8.Hypomagnesemia. Persists.Continue repletion. Repeat level in a.m. 9.Tobacco use. -Cessation advised. 10. Possible noncompliance. -counselled patient 11.Alcohol abuse. -Abstinence advised. 12.Morbid obesity Weight reduction advised. PLAN: Taper off Librium. Continue lactulose and rifaximin. Monitor neuro status. Follow-up ammonia and magnesium level in a.m. If stable, DC planning in AM. Patient was seen in collaboration with . Problems: Subjective 24 Hr Interval Summary Free Text/Dictation Patient is slightly lethargic and disoriented to time. Exam/Review of Systems Vital Signs Vitals Vital Signs Date Time Temp Pulse Resp B/P Pulse Ox O2 Delivery O2 Flow Rate FiO2 04/15/17 08:00 69 04/15/17 07:33 97.7 16 136/87 97 04/13/17 07:30 Nasal Cannula 2.0 04/12/17 06:14 21 Intake and Output 04/14/17 04/14/17 04/15/17 14:59 22:59 06:59 Intake Total 1461.2 ml 250 ml Balance 1461.2 ml 250 ml Exam General:Morbidly obese male, not in any acute distress . HEENT: Normocephalic, Atraumatic, No laceration or hematoma; Eyes: PEERL, Conjunctiva clear, Anicteric sclera Neck: Supple without any lymphadenopathy, nontender, no JVD, no carotid bruits, trachea midline, no thyromegaly Cardiac: S1, S2 auscultated, regular rhythm and rate, no mumurs or gallop Pulmonary: Normal respiratory effort. Chest clear to auscultation bilaterally, no adventitious breath sounds GI: Abdomen obese to inspection. Soft, non- distended, no masses, no rebound tenderness or guarding. Bowel sounds active on all four quadrants Genitourinary: Deferred Extremities: +Chronic lymphedema BLE. No cyanosis or clubbing. Pulses [2+] bilaterally. Full ROM on all four extremities. No focal weakness appreciated. Neurologic:Slightly lethargic and confused. Disoriented to time. Skin: Clean,dry, and intact. No ecchymosis, no rashes, or lesions Results Result Diagram: 04/14/17 0604/14/17 0607 Results 24 hrs Laboratory Tests Test 04/14/17 11:37 04/14/17 17:19 04/14/17 20:54 04/15/17 07:06 Bedside Glucose 133 186 91 Magnesium Level 1.2 L Ammonia 74 H Test 04/15/17 08:21 Bedside Glucose 193 Medications Medications Current Medications Lorazepam (Ativan) 2 mg Q1H PRN IV CONTROL WITHDRAWAL SYMPTOMS Last administered on 04/12/17 22:36; Admin Dose 2 MG; Start 04/12/17 at 05:00 Ondansetron HCl (Zofran Inj) 4 mg Q6H PRN IV NAUSEA AND/OR VOMITING; Start 07/17 at 05:00 Morphine Sulfate (morphine) 2 mg Q4H PRN IV PAIN LEVEL 7-10 Last administered on 04/14/17 08:18; Admin Dose 2 MG; Start 04/12/17 at 05:00 Heparin Sodium (Porcine) (Heparin (5000 Units/0.5 ml)) 5,000 unit Q12 SC Last administered on 04/15/17 08:28; Admin Dose 5,000 UNIT; Start 04/12/17 at 09:00 Metoprolol Tartrate 50 mg 50 mg BID PO Last administered on 04/15/17 08:29; Admin Dose 50 MG; Start 04/12/17 at 09:00 Multivitamins/ Thiamine HCl/ Folic Acid/Sodium Chloride (Mvi Adult/ Vitamin B1/ Folic Acid/NS) 1,011.2 ml @ 60 mls/hr DAILY@09 IVPB Last administered on 08:25; Admin Dose 60 MLS/HR; Start 04/12/17 at 09:00 Miscellaneous Information 1 ea NOTE XX ; Start 04/12/17 at 05:30 Glucose (Glutose) 15 gm Q15M PRN PO DECREASED GLUCOSE; Start 04/12/17 at 05:30 Glucose (Glutose) 22.5 gm Q15M PRN PO DECREASED GLUCOSE; Start 04/12/17 at 05: 30 Dextrose (D50w Syringe) 25 ml Q15M PRN IV DECREASED GLUCOSE; Start 04/12/17 at 05:30 Dextrose (D50w Syringe) 50 ml Q15M PRN IV DECREASED GLUCOSE; Start 04/12/17 at 05:30 Glucagon (Glucagen) 1 mg Q15M PRN IM DECREASED GLUCOSE; Start 04/12/17 at 05:30 Glucose (Glutose) 15 gm Q15M PRN BUCCAL DECREASED GLUCOSE; Start 04/12/17 at 05 :30 Diagnostic Test (Pha) (Accu-Chek) 1 ea 02 XX Last administered on 04/15/17 02: 26; Admin Dose 1 EA; Start 04/13/17 at 02:00 Insulin Glargine (Lantus) 30 unit DAILY@08 SC Last administered on 04/15/17 08 :25; Admin Dose 30 UNIT; Start 04/14/17 at 08:00 Famotidine (Pepcid) 20 mg HS PO Last administered on 04/14/17 20:56; Admin Dose 20 MG; Start 04/13/17 at 21:00 Lactulose (Enulose) 20 gm BID PRN PO CONSTIPATION; Start 04/14/17 at 12:30 Chlordiazepoxide (Librium) 50 mg BID PO Last administered on 04/15/17 08:29; Admin Dose 50 MG; Start 04/14/17 at 21:00 NICK SANTIAGO NP Apr 15, 2017 09:38
[2017-04-15] MEDS ORDERED: MAGNESIUM SULFATE 4 GM/100 ML 100 ML IVPB ONE (10:00)
[2017-04-15] MEDS: RIFAXIMIN 550 MG TAB PO SCH ×2 (10:59→20:43)
[2017-04-15] MEDS: LINAGLIPTIN 5 MG TABLET PO SCH (10:59)
[2017-04-15] MEDS: LACTULOSE 30ML CUP PO SCH ×2 (13:50→17:15)
[2017-04-15] MEDS: FAMOTIDINE 20 MG TAB PO SCH (20:43)
[2017-04-16 00:04] VITALS: PULSE 75
[2017-04-16] MEDS: MULTIVITAMINS 10 ML, THIAMINE 100 MG, FOLIC ACID 1 MG in SOD CHLORIDE 0.9% 1,000 ML IVPB SCH (01:37)
[2017-04-16] MEDS: ACCU-CHEK XX SCH (01:45)
[2017-04-16 04:04] VITALS: BP 131/63; PULSE 72; RESP 19
[2017-04-16] MEDS: LACTULOSE 30ML CUP PO SCH ×2 (06:10)
[2017-04-16 07:13] LABS: ABNORMAL IP MESSAGE 1; BASOPHILS % 1.3 % (0.0-2.0); EOSINOPHILS # 0.2 10^3/ul (0.0-0.5); EOSINOPHILS % 4.7 % (0.0-7.0); HEMATOCRIT 30.2 % (42.0-52.0); HEMOGLOBIN 10.3 g/dl (14.0-18.0); LYMPHOCYTES # 0.8 10^3/ul (0.8-2.9); LYMPHOCYTES % 23.7 % (15.0-51.0); MEAN CORPUSCULAR HEMOGLOBIN 34.7 pg (29.0-33.0); MEAN CORPUSCULAR HGB CONC 34.1 g/dl (32.0-37.0); MEAN CORPUSCULAR VOLUME 101.7 fl (82.0-101.0); MONOCYTE # 0.4 10^3/ul (0.3-0.9); MONOCYTES % 13.6 % (0.0-11.0); NEUTROPHIL # 1.8 10^3/ul (1.6-7.5); NEUTROPHILS % 56.4 % (39.0-77.0); PLATELET COUNT 51 10^3/UL (140-415); POSITIVE DIFF @See below; RED BLOOD COUNT 2.97 10^6/ul (4.70-6.10); RED CELL DISTRIBUTION WIDTH 17.8 % (11.5-14.5); WHITE BLOOD COUNT 3.2 10^3/ul (4.8-10.8)
[2017-04-16 07:41] VITALS: BP 129/88; RESP 18
[2017-04-16 07:42] LABS: ALBUMIN 2.2 g/dl (3.3-4.9); ALBUMIN/GLOBULIN RATIO 0.68; BILIRUBIN,INDIRECT 1.5 mg/dl (0-1.1); BILIRUBIN,TOTAL 1.5 mg/dl (0.2-1.3); CALCIUM 8.5 mg/dl (8.4-10.2); CREATININE 0.96 mg/dl (0.61-1.24); POTASSIUM 3.8 mmol/L (3.5-5.1); TOTAL PROTEIN 5.4 g/dl (6.1-8.1)
[2017-04-16 08:05] VITALS: PULSE 74
[2017-04-16] MEDS: LINAGLIPTIN 5 MG TABLET PO SCH (09:45)
[2017-04-16] MEDS: RIFAXIMIN 550 MG TAB PO SCH (09:46)
[2017-04-16] MEDS: METOPROLOL 50 MG TAB PO SCH (09:47)
[2017-04-16] MEDS: INSULIN ASPART [NOVOLOG] 3 ML PEN SC SCH ×2 (09:51→10:04)
[2017-04-16] MEDS: HEPARIN 5,000 UNIT/0.5 ML VIAL SC SCH (09:52)
--- NOTE | 2017-04-16 09:58 | PDOCDIS ---
Discharge Instructions DIAGNOSIS Discharge Diagnosis Abdominal pain due to gastritis; alcoholism; cirrhosis with thrombocytopenia and portal hypertension; tobacco abuse; COPD; Diabetes mellitus type 2 CONDITION Patient Condition: Fair HOME CARE INSTRUCTIONS: Special Diet: carb control ACTIVITY: Activity Restrictions: Slowly Increase Activity FOLLOW UP/APPOINTMENTS Follow-up Plan Primary care physician in the next 2 weeks ANGEL SARKAR MD Apr 16, 2017 09:58
--- NOTE | 2017-04-16 09:58 | DS ---
Date/Time of Note Date/Time of Note DATE: 04/16/17 TIME: 09:53 Discharge Summary Admission/Discharge Info Admit Date/Time Apr 11, 2017 at 20:53 Discharge Date/Time April 16, 2017 Discharge Diagnosis Abdominal pain due to gastritis; alcoholism; cirrhosis with thrombocytopenia and portal hypertension; tobacco abuse; COPD Patient Condition: Fair Procedures Abdominal ultrasound Hx of Present Illness This is a 51 yo male with hx of HTN, insulin dep DM and alcohol abuse who presented to ER c/o abd pain. He has been drinking "all kinds of alcohol" for about 2 weeks. Abd pain is diffuse, but mainly in [place]-umblical and epigastric area. pt is lethargic/sleepy and as such information obtained from him is limited. Lab showed elevated blood alcohol level . . Hospital Course 1.Abdominal pain with EtOH intoxication/ DTs. Improved -Continue banana bag, PRN Ativan. Titrate off Librium as patent is now slightly lethargic -Abstinence advised 2. Mild encephalopathy, likely hepatic with hyperammonemia 2/2 cirrhosis.Ammonia trended up today -Titrate up lactulose. Add rifaximin. 3.Hyperglycemia with DMII. A1C 8.2. -Add Tradjenta. Continue with Lantus to 30,premeal 10 TID. Continue Accuchecks, ISS and Carb controlled diet -DM education 4.Alcoholic Liver cirrhosis/portal HTN. No ascites. -No need for diuretics at this time. 5.HTN. Stable -Continue antihypertensives and titrate as needed 6.Pancytopenia/Thrombocytopenia 2/2 #3 -Monitor closely-no need for transfusion now. 7. Chronic lymphedema.Stable. -Elevation of affected extremities. 8.Hypomagnesemia. Persists.Continue repletion. Repeat level in a.m. 9.Tobacco use. -Cessation advised. 10. Possible noncompliance. -counselled patient 11.Alcohol abuse. -Abstinence advised. 12.Morbid obesity Weight reduction advised. PLAN: Taper off Librium. Continue lactulose and rifaximin. Monitor neuro status. Follow-up ammonia and magnesium level in a.m. If stable, DC planning in AM. Patient was seen in collaboration with . 51-year-old [place] gentleman. Came in with sequelae of alcoholism with cirrhosis and portal hypertension. Fortunately did not have any type of bleeding disorder. He was stabilized and was taken through detox with Librium. He is now improved and is no longer having symptoms. He is stable for discharge with counseling that he needs to go through alcohol rehab. Specifically been told that if he continues to drink he will have a catastrophic event from his liver. He aknowledges this and agrees to seek outpatient assistance. He is now discharged improved condition as compared to the time of admission. He has fair rehabilitation potential if he quits drinking alcohol. Competent for medical decision-making is not a hazard to himself or others side of his social issues. Please note his diabetes was much better controlled with adjustments in his regimen . Home Meds Reported Medications Metoprolol Tartrate* (Lopressor*) 50 Mg Tab, 50 MG PO BID, #60 TAB 04/11/17 Metformin Hcl* (Metformin Hcl*) 1,000 Mg Tablet, 1000 MG PO WITH BREAKFAST DINNE , #60 TAB 04/11/17 Insulin Aspart (Novolog Mix (70/30)) 100 Units/Ml Soln, 100 SC WITH BREAKFAST DINNE, EA 04/11/17 Follow-up Plan Primary care physician in the next 2 weeks Primary Care Provider Brian Knight Time spent on discharge: > 30 minutes Pending Labs Laboratory Tests Test 04/15/17 17:09 04/15/17 20:58 04/16/17 01:43 04/16/17 06:40 Bedside Glucose 175mg/dL (70-220) 279mg/dL (70-220) 159mg/dL (70-220) White Blood Count 3.210^3/ul (4.8-10.8) Red Blood Count 2.9710^6/ul (4.70-6.10) Hemoglobin 10.3g/dl (14.0-18.0) Hematocrit 30.2% (42.0-52.0) Mean Corpuscular Volume 101.7fl (82.0-101.0) Mean Corpuscular Hemoglobin 34.7pg (29.0-33.0) Mean Corpuscular Hemoglobin Concent 34.1g/dl (32.0-37.0) Red Cell Distribution Width 17.8% (11.5-14.5) Platelet Count 5110^3/UL (140-415) Mean Platelet Volume 12.0fl (7.4-10.4) Neutrophils % 56.4% (39.0-77.0) Lymphocytes % 23.7% (15.0-51.0) Monocytes % 13.6% (0.0-11.0) Eosinophils % 4.7% (0.0-7.0) Basophils % 1.3% (0.0-2.0) Nucleated Red Blood Cells % 0.0/100WBC (0.0-0.0) Neutrophils # 1.810^3/ul (1.6-7.5) Lymphocytes # 0.810^3/ul (0.8-2.9) Monocytes # 0.410^3/ul (0.3-0.9) Eosinophils # 0.210^3/ul (0.0-0.5) Basophils # 0.010^3/ul (0.0-0.1) Nucleated Red Blood Cells # 0.010^3/ul (0.0-0.0) Sodium Level 138mmol/L (135-144) Potassium Level 3.8mmol/L (3.5-5.1) Chloride Level 111mmol/L (97-110) Carbon Dioxide Level 27mmol/L (21-31) Anion Gap 4 (8-16) Blood Urea Nitrogen 14mg/dl (7-20) Creatinine 0.96mg/dl (0.61-1.24) Glucose Level 150mg/dl (70-220) Calcium Level 8.5mg/dl (8.4-10.2) Magnesium Level 1.2mg/dl (1.7-2.5) Total Bilirubin 1.5mg/dl (0.2-1.3) Direct Bilirubin 0.00mg/dl (0.00-0.20) Indirect Bilirubin 1.5mg/dl (0-1.1) Aspartate Amino Transf (AST/SGOT) 75IU/L (15-46) Alanine Aminotransferase (ALT/SGPT) 50IU/L (13-69) Alkaline Phosphatase 64IU/L (42-121) Ammonia 28umol/l (9-30) Total Protein 5.4g/dl (6.1-8.1) Albumin 2.2g/dl (3.3-4.9) Globulin 3.20g/dl (1.3-3.2) Albumin/Globulin Ratio 0.68 Test 04/16/17 09:23 Bedside Glucose 162mg/dL (70-220) ANGEL SARKAR MD Apr 16, 2017 09:58
[2017-04-16] MEDS ORDERED: LANT3I SC (10:00)
[2017-04-16] MEDS ORDERED: RIFA550T4 PO (10:00)
[2017-04-16] MEDS ORDERED: LINA5TAB PO (10:00)
[2017-04-16] MEDS: INSULIN GLARGINE [LANtus] 3 ML PEN SC SCH (10:04)
== END 2017-04-16 11:07 | disposition home or self-care (01) | DRG 433 ==
LOC: E/R 18:58 → TEL 20:53
PROVIDERS: ADMIT Internal Medicine; ATTEND Internal Medicine
DX: K70.40 Alcoholic hepatic failure without coma (principal); D61.818 Other pancytopenia; K70.30 Alcoholic cirrhosis of liver without ascites; F10.221 Alcohol dependence with intoxication delirium; Z68.41 Body mass index [BMI] 40.0-44.9, adult; E11.65 Type 2 diabetes mellitus with hyperglycemia; K76.6 Portal hypertension; D69.59 Other secondary thrombocytopenia; F10.229 Alcohol dependence with intoxication, unspecified; E66.01 Morbid (severe) obesity due to excess calories; I10 Essential (primary) hypertension; R10.13 Epigastric pain; Y90.8 Blood alcohol level of 240 mg/100 ml or more; J44.9 Chronic obstructive pulmonary disease, unspecified; F17.210 Nicotine dependence, cigarettes, uncomplicated; E83.42 Hypomagnesemia; I89.0 Lymphedema, not elsewhere classified; Z79.4 Long term (current) use of insulin; Z91.19 Patient's noncompliance with other medical treatment and regimen
CPT/HCPCS: 36415; 36600; 71010; 76700; 80048; 80053; 80306; 82140; 82550; 82553; 82728; 82803; 82962; 83036; 83540; 83690; 83735; 83880; 84100; 84484; 85025; 93005; 94644; 94660; 96374; 96375; 96376; 97110; 97116; 97163; 97530; C9113; J1644; J1815; J1885; J1940; J2060; J2270; J2405; J2930; J3411; J7030; J7042